=== PATIENT | female | born 1980 | race American Indian/Alaskan Native ===

== ENCOUNTER 2018-11-11 13:57 | Emergency (ER) | payer OTHER ==
[2018-11-11 14:05] VITALS: BMI 22.3
[2018-11-11 14:11] VITALS: RESP 18
[2018-11-11] MEDS ORDERED: Sodium Chloride 0.9% 1,000 ML IV SCH (14:15)
[2018-11-11] MEDS ORDERED: Iodixanol 320 MG/ML 100 ML BOTTLE IV ONE (14:15)
[2018-11-11 14:28] LABS: BASO % 0.7 % (0.0-2.0); EOS % 1.3 % (0.0-4.0); HEMOGLOBIN 12.7 g/dL (11.0-16.0); LYMPH # 0.9 K/uL (1.0-4.3); LYMPH % 29.7 % (20.0-40.0); MEAN CELL VOLUME 94.8 fL (81.0-99.0); MEAN CORPUSCULAR HEMOGLOBIN 32.2 pg (27.0-31.0); MEAN PLATELET VOLUME 8.3 fL (7.2-11.7); MONO # 0.4 K/uL (0.0-0.8); MONO % 14.4 % (0.0-10.0); NEUT # 1.6 K/uL (1.8-7.0); NEUT % 53.9 % (50.0-75.0); RBC 3.94 Mil/uL (3.80-5.20); RED CELL DISTRIBUTION WIDTH 13.6 % (11.5-14.5); WHITE BLOOD COUNT 2.9 K/uL (4.8-10.8)
[2018-11-11 14:42] LABS: ALB/GLOB RATIO 1.3 (1.0-2.1); ALBUMIN 4.3 g/dL (3.5-5.0); ALT/SGPT 18 U/L (9-52); AST/SGOT 32 U/L (14-36); BLOOD UREA NITROGEN 6 mg/dL (7-17); GFR NON-AFRICAN AMERICAN > 60; HDL CHOLESTEROL 38 mg/dL (30-70); INR 1.1; PARTIAL THROMBOPLASTIN TIME 26.6 SECONDS (21-34); PROTHROMBIN TIME 12.2 SECONDS (9.7-12.2)
[2018-11-11 14:51] LABS: LDL CHOLESTEROL 97 mg/dL (0-129)
--- NOTE | 2018-11-11 14:55 | CT ---
Date of service: 11/11/2018 PROCEDURE: CT HEAD WITHOUT CONTRAST. HISTORY: Code Stroke COMPARISON: Not available TECHNIQUE: Axial computed tomography images were obtained through the head/brain without intravenous contrast. Radiation dose: Total exam DLP = 956.43 mGy-cm. This CT exam was performed using one or more of the following dose reduction techniques: Automated exposure control, adjustment of the mA and/or kV according to patient size, and/or use of iterative reconstruction technique. FINDINGS: HEMORRHAGE: No intracranial hemorrhage. BRAIN: No mass effect or edema. There is focal left frontal encephalomalacia common nonspecific. Possible old left MCA territory infarct. There is very mild periventricular white matter lucency. There is multifocal deep/subcortical white matter lucency consistent with microvascular ischemic change. Alternatively, consider demyelinating disorder in a woman of this age. No evidence of acute infarct. VENTRICLES: Unremarkable. No hydrocephalus. CALVARIUM: Unremarkable. PARANASAL SINUSES: Unremarkable as visualized. No significant inflammatory changes. MASTOID AIR CELLS: Unremarkable as visualized. No inflammatory changes. OTHER FINDINGS: None. IMPRESSION: No evidence of acute infarct. Old left frontal encephalomalacia. Multifocal white matter lucency common nonspecific. In a patient of this age consider the possibility of demyelinating disorder. Alternatively, this could represent microvascular ischemic change. The findings in this examination were discussed by telephone with Dr. Sanchez at 2:34 p.m. on 11/11/2018.
--- NOTE | 2018-11-11 14:59 | C.PDOC ---
History Of Present Illness 38 year old female presents to ED with complaint of slurred speech and left arm numbness since 10pm last night. at bedside pt seen moving all extremites no slurred speech. Patient has a PMHx of fibromyalgia, sickle cell trait, and TIA. Patient denies fever, chills, and headache. Time Seen by Provider: 11/11/18 14:01 Chief Complaint (Nursing): Weakness/Neurological Deficit History Per: Patient History/Exam Limitations: no limitations Onset/Duration Of Symptoms: Hrs (17) Current Symptoms Are (Timing): Still Present Seizure Or Post-ictal Symptoms: None Fall Associated With With Symptoms: No Past Medical History Reviewed: Historical Data, Nursing Documentation, Vital Signs Vital Signs: Last Vital Signs Temp 98.2 F 11/11/18 14:04 Pulse 98 H 11/11/18 14:04 Resp 18 11/11/18 14:04 BP 156/91 H 11/11/18 14:04 Pulse Ox 96 11/11/18 14:04 Primary Care Provider: FAMILY PROVIDER,NO - Medical History PMH: Asthma, Fibromyalgia, HTN, TIA Surgical History: No Surg Hx Family History: States: Unknown Family Hx - Social History Hx Alcohol Use: No Hx Substance Use: No - Immunization History Hx Tetanus Toxoid Vaccination: No Hx Influenza Vaccination: No Hx Pneumococcal Vaccination: No Review Of Systems Except As Marked, All Systems Reviewed And Found Negative. Neurological: Positive for: Numbness (left arm numbness), Change in Speech (slurred speech) ED Course And Treatment - Laboratory Results Result Diagrams: 11/11/18 14:23 11/11/18 14:23 Lab Results: PT 12.2 SECONDS (9.7-12.2) 11/11/18 14:23 INR 1.1 11/11/18 14:23 APTT 26.6 SECONDS (21-34) 11/11/18 14:23 Total Bilirubin 0.6 mg/dL (0.2-1.3) 11/11/18 14:23 AST 32 U/L (14-36) 11/11/18 14:23 ALT 18 U/L (9-52) 11/11/18 14:23 Alkaline Phosphatase 57 U/L (38-126) 11/11/18 14:23 Total Protein 7.6 g/dL (6.3-8.3) 11/11/18 14:23 Albumin 4.3 g/dL (3.5-5.0) 11/11/18 14:23 Globulin 3.3 gm/dL (2.2-3.9) 11/11/18 14:23 Albumin/Globulin Ratio 1.3 (1.0-2.1) 11/11/18 14:23 ECG: Interpreted By Me, Viewed By Me ECG Rhythm: Sinus Rhythm ECG Interpretation: Normal Interpretation Of ECG: No ST/T waves changes Rate From EC O2 Sat by Pulse Oximetry: 96 (in RA) Pulse Ox Interpretation: Normal - CT Scan/US Head CT Other Rad Studies (CT/US): Read By Radiologist CT/US Interpretation: Date of service: 11/11/2018. PROCEDURE: CT HEAD WITHOUT CONTRAST. HISTORY: Code Stroke. COMPARISON: Not available. TECHNIQUE: Axial computed tomography images were obtained through the head/brain without intravenous contrast. Radiation dose: Total exam DLP = 956.43 mGy-cm. This CT exam was performed using one or more of the following dose reduction techniques: Automated exposure control, adjustment of the mA and/or kV according to patient size, and/or use of iterative reconstruction technique. FINDINGS: HEMORRHAGE: No intracranial hemorrhage. BRAIN: No mass effect or edema. There is focal left frontal encephalomalacia common nonspecific. Possible old left MCA ter ritory infarct. There is very mild periventricular white matter lucency. There is multifocal deep/subcortical white matter lucency consistent with microvascular ischemic change. Alternatively, consider demyelinating disorder in a woman of this age. No evidence of acute infarct. VENTRICLES: Unr emarkable. No hydrocephalus. CALVARIUM: Unremarkable. PARANASAL SINUSES: Unremarkable as visualized. No significant inflammatory changes. MASTOID AIR CELLS: Unremarkable as visualized. No inflammatory changes. OTHER FINDINGS: None. IMPRESSION: No evidence of acute infarct. Old left frontal encephalomalacia. Multifocal white matter lucency common nonspecific. In a patient of this age consider the possibility of demyelinating disorder. Alternatively, this could represent microvascular ischemic change. The findings in this examination were discussed by telephone with Dr. Sanchez at 2:34 p.m. on 11/11/2018. CTA head and neck Other Rad Studies (CT/US): Read By Radiologist CT/US Interpretation: Date of service: 11/11/2018. PROCEDURE: CTA HEAD AND NECK WITH CONTRAST. HISTORY: code stroke. COMPARISON: None available. T ECHNIQUE: Initial noncontrast head CT was performed. Subsequently, CT angiogram of the head and neck were performed after the intravenous administration of 80 mL of Omnipaque 350. Contiguous 1.5mm thick images were obtained in the axial plane of the neck. 2-D coronal and sagittal MPR images were obtained. Imaging postprocessing was performed with 3-D images also obtained. A delayed contrast head CT was also obtained. This CT exam was performed using one or more of the following dose reduction techniques: Automated exposure control, adjustment of the mA and/or kV according to patient size, and/or use of iterative reconstruction technique. Contrast dose: 100 mL Visipaque 320. Radiation dose: Total exam DLP = 572.44 mGy-cm. FINDINGS: HEAD: Right: The intracranial internal carotid artery, and anterior and middle cerebral arteries are widely patent. Left: The intracranial internal carotid artery, and anterior and middle cerebral arteries are widely patent. Posterior circulation: The visualized intracranial vertebral arteries, basilar artery and posterior cerebral arteries are widely patent. There is no endoluminal filling defect to suggest thrombus. There is no intracranial saccular aneurysm. NECK: There is a three vessel aortic arch. There is no stenosis at the origins of the great vessels at the level of the aortic arch. No atherosclerotic calcification or mural plaque present. Right Carotid: On the right, the common carotid, internal carotid and external carotid arteries are widely patent. There is no hemodynamically significant stenosis in the internal carotid artery by NASCET criteria. Left Carotid: On the left, the common carotid, internal carotid and external carotid arteries are widely patent. There is no hemodynamically significant stenosis in the internal carotid artery by NASCET criteria. The vertebral arteries are widely patent. The visualized soft tissues of the neck are normal. The visualized brain and cervical spine are within normal limits. There is paraseptal emphysema in the lung apices. IMPRESSION: 1. No evidence of endoluminal thrombus,occlusion or definite significant stenosis in the intracranial arteries. 2. No evidence of hemodynamically significant stenosis in the internal carotid arteries. 3. Patent bilateral vertebral arteries. NIHSS Stroke Scale 2 - Date/Time Evaluation Performed Time Performed: 09:37 - How Severe is the Stroke Level of Consciousness: 0=Alert LOC to Questions: 0=Both comments correct LOC to commands: 0=Obeys both correctly Best Gaze: 0=Normal Visual: 0=No visual loss Facial: 0=Normal Motor Arm - Left: 0=No drift Motor Arm - Right: 0=No drift Motor Leg - Left: 0=No drift Motor Leg - Right: 0=No drift Limb Ataxia: 0=Absent Sensory: 0=Normal Best Language: 0=No aphasia Dysarthia: 0=Normal articulation Extinction & Inattention (Neglect): 0=Normal, no object Score: 0 rTPA Inclusion/Exclusion - Refusal of Treatment Patient Refused Treatment: No - Inclusion Criteria for Altepase All of the below criteria for inclusion were reviewed: No Patient is 18 years or Older: No The Clinical Diagnosis of Ischemic Stroke That is Causing a Potentially Disabling Neurological Deficit: No Time of Onset is Well Established to be Less Than 270 Minute Before Treatment Would Begin: No Risk/Benefit Discussed With Patient/Family Member Present: No - Exclusion Criteria for Altepase Current Intracranial Hemorrhage: No Subarachnoid hemorrhage: No Recent (within 3 months) Intracranial or Intraspinal Surgery: No Presence of intracranial conditions that may increase the risk of bleeding: Not Applicable Bleeding Diathesis Including but not limited to: Not Applicable Medical Decision Making Medical Decision Making: Impression: 38 year old female presents to ED with complaint of slurred speech and left arm numbness since 10pm last night. at bedside pt seem at times moving extremities with speech cleared. thomas conversion d/o Initial Plan: type and screen CTA Head/Neck Head CT EKG Labs ordered with troponin and PTT CBC CXR UA IV fluids pt seen by james gan. seen moving extremites speech slurred resolved clearly conversion d/o. seen and cleared by dr hickey bedside for dc Disposition - Disposition Referrals: Sneha Hickey MD [Staff Provider] - Disposition: HOME/ ROUTINE Disposition Time: 15:00 Condition: STABLE Additional Instructions: follow up outpatient. return to er with worsening symptosm or concerns Instructions: Conversion Disorder Forms: [employer] (Scottish) - Clinical Impression Clinical Impression: Conversion disorder - Scribe Statement The provider has reviewed the documentation as recorded by the Scribe (Maria De Jesus Michaels) All medical record entries made by the Scribe were at my direction and p ersonally dictated by me. I have reviewed the chart and agree that the record accurately reflects my personal performance of the history, physical exam, medical decision making, and the department course for this patient. I have also personally directed, reviewed, and agree with the discharge instructions and disposition.
[2018-11-11 16:31] VITALS: BP 147/85; PULSE 90; TEMP 98.5
--- NOTE | 2018-11-14 13:44 | CARD ---
APPROVED REPORT Date of service: 11/11/2018 EKG Measurement Heart [id number] <Conclusion> Normal sinus rhythm Normal ECG
[2018-11-14 15:20] VITALS: O2SAT 96
== END 2018-11-11 16:30 | disposition home or self-care (01) ==
LOC: C.ER 13:57 → C.9E 15:21 → UNDOADMOB 15:21
DX: F44.4 Conversion disorder with motor symptom or deficit (principal)
CPT/HCPCS: 70450; 70496; 70498; 80053; 80061; 80320; 82948; 83036; 84484; 85025; 85610; 85730; 93005; 99285; Q9967